=== PATIENT | female | born 1945 | race Caucasian/White ===

== ENCOUNTER 2020-09-04 01:19 | Outpatient (CLI) | payer MEDICARE, SELFPAY ==
[2020-09-04 20:09] LABS: SARS-CoV-2 RNA PCR Negative
== END 2020-09-04 01:20 | disposition home or self-care (01) ==
LOC: ANHCOVIDDT 01:19
PROVIDERS: PCP Internal Medicine; Visit Provider Internal Medicine Gastroenterology
DX: Z01.812 Encounter for preprocedural laboratory examination (principal); Z20.822 Contact with and (suspected) exposure to COVID-19
CPT/HCPCS: C9803; U0003

== ENCOUNTER 2020-09-07 01:33 | Day surgery (SDC) | payer MEDICARE, SELFPAY ==
[2020-08-23 13:31] VITALS: BMI 27.1
[2020-09-07 08:34] VITALS: BP 165/89; PULSE 100; RESP 16; TEMP 36.7; O2SAT 99
[2020-09-07] MEDS: LACTATED RINGERS 1,000 ML 150 ML IV CONT (08:47)
--- NOTE | 2020-09-07 09:22 | WPDANESEPPF ---
Anes - Initial Pre Proc Eval Procedure: Operation Date: 09/07/20 09:45 Proposed Procedures p Esophagogastroduodenoscopy - Adan Tao MD Date/Time: 09/07/20 09:22 Surgeon: Adan Tao MD Pre Op Diagnosis: gastric adenoma Patient Data Age: 75 Gender: F Height: 5 ft Weight: 65.2 kg Last Vital Signs Temp 98.0 F 09/07/20 08:34 Pulse 100 09/07/20 08:34 Resp 16 09/07/20 08:34 BP 165/89 H 09/07/20 08:34 Pulse Ox 99 09/07/20 08:34 Allergies Allergy/AdvReac Type Severity Reaction Status Date / Time No Known Allergies Allergy Unverified 09/07/20 08:33 Home Medications Medication Instructions Recorded Confirmed Type hydrochlorothiazide 25 mg tablet 25 mg PO DAILY tablet 07/22/20 09/07/20 History lactobacillus combination no.9 4 4,000 mmu cells PO DAILY 07/22/20 09/07/20 History billion cell capsule multivit with 1 tablet PO DAILY 07/22/20 09/07/20 History dkmhxfyj-rlop-HI-lutein 8 mg iron-400 mcg-300 mcg tablet amlbokep-cxrw-ziq3-C-chandana-bosw 1 tablet PO DAILY 08/23/20 09/07/20 History [Osteo Bi-Flex Triple Strength] Patient hx anesthesia problems: none Family hx anesthesia problems: none PMFSH Past Medical History Medical History (Updated 07/22/20 @ 11:28 by Adan Tao MD) Arthritis Encounter for screening colonoscopy Gastric adenoma H/O: HTN (hypertension) History of diverticulitis of colon Hypertension Paraesophageal hiatal hernia Social History Social History Smoking packs per day: 1.5 Smoking cigarettes per day: 30.0 Years smoked: 25 Smoking pack-years: 37.50 Smoking status: Former smoker Tobacco type: cigarettes Alcohol intake: current Substance use: never Substance use type: does not use Living arrangements: alone Spiritual care concerns: No Anes - Eval Final PreProcedure Day of Procedure 09/07/20 09:22 Patient weight: normal Heart: regular rate and rhythm Lungs: clear to auscultation Airway: Mallampati scale class II Neurological: alert and oriented Last oral intake: >/= 8 hours ASA classification: III Emergent: no Anesthetic plan: proceed Anesthesia type and monitoring: general GIVS and standard monitoring Informed Consent: The patient's anesthetic plan and its attendant risks and benefits were discussed with the patient/family/POA. Questions were solicited and answers provided to the satisfaction of the patient/family/POA.
--- NOTE | 2020-09-07 09:36 | PM.HPGS ---
History of Present Illness History of Present Illness Consent: Risks, benefits, and alternatives have been discussed and questions answered. Patient agrees to proceed with procedure. Chief complaint: gastric adenoma Narrative: Rehana Cantu is a 75 year old female with gastric adenoma diagnosed in 2019 and hiatal hernia but denies nausea or abdominal pain. Review of Systems Constitutional: Constitutional: Denies headache(s) and Denies weakness Eyes: Eyes: Denies blurry vision ENT: Reports Normal hearing present, Denies headache(s) and Denies neck pain Cardiovascular: Cardiovascular: Denies chest pain and Denies dyspnea Respiratory: Respiratory: Denies dyspnea Gastrointestinal: Gastrointestinal: Reports no additional gastrointestinal complaints Genitourinary: Genitourinary: Denies dysuria Musculoskeletal: Musculoskeletal: Denies neck pain Integumentary/Breasts: Skin/Breast: Denies dry skin Neurologic: Reports Normal hearing present, Denies headache(s) and Denies weakness Psychiatric: Psychiatric: Denies anxiety Endocrine: Endocrine: Denies change in body appearance Hematologic/Lymphatic: Hematologic/Lymphatic: Denies easy bleeding Allergic/Immunologic: Allergic/Immunologic: Denies urticaria PMF Past Medical History Medical History (Updated 07/22/20 @ 11:28 by Adan Tao MD) Arthritis Encounter for screening colonoscopy Gastric adenoma H/O: HTN (hypertension) History of diverticulitis of colon Hypertension Paraesophageal hiatal hernia Social History Social History Smoking packs per day: 1.5 Smoking cigarettes per day: 30.0 Years smoked: 25 Smoking pack-years: 37.50 Smoking status: Former smoker Tobacco type: cigarettes Alcohol intake: current Substance use: never Substance use type: does not use Living arrangements: alone Spiritual care concerns: No Meds Home Medications and Allergies Home Medications Medication Instructions Recorded Confirmed Type hydrochlorothiazide 25 mg tablet 25 mg PO DAILY tablet 07/22/20 09/07/20 History lactobacillus combination no.9 4 4,000 mmu cells PO DAILY 07/22/20 09/07/20 History billion cell capsule multivit with 1 tablet PO DAILY 07/22/20 09/07/20 History vqiqdbol-cxqw-QH-lutein 8 mg iron-400 mcg-300 mcg tablet qhepsuiv-tmlp-llf4-C-chandana-bosw 1 tablet PO DAILY 08/23/20 09/07/20 History [Osteo Bi-Flex Triple Strength] Allergies Allergy/AdvReac Type Severity Reaction Status Date / Time No Known Allergies Allergy Unverified 09/07/20 08:33 Vital Signs Vital Signs - 24 hr 09/07/20 08:34 Temperature 98.0 F Pulse Rate 100 Respiratory Rate 16 Blood Pressure 165/89 H Pulse Oximetry 99 Exam Const: General: comfortable and no acute distress HENMT: General nose exam: Normal nares present Eyes: General: appearance normal, both eyes and all related structures Neck: Neck: no JVD Resp: Auscultation: clear to auscultation bilaterally Cardio: Rate: regular rate Rhythm: regular rhythm GI: Inspection: non-distended GI Palp: Yes Soft to palpation Skin: General skin exam: normal color Neuro: General: gait normal Speech: normal speech Extrem: General: normal to inspection Psych: Mental Status: mental status grossly normal Assessment and Plan Assessment and plan (1) Gastric adenoma: Code(s): D13.1 - Benign neoplasm of stomach Status: Acute Assessment and Plan: egd with bx (2) Paraesophageal hiatal hernia: Code(s): K44.9 - Diaphragmatic hernia without obstruction or gangrene Status: Acute Assessment and Plan: she may be interested to talk to a surgeon later on but now does not have symptoms.
[2020-09-07] MEDS: BENZOCAINE (*SP) 60 ML SPRAY CAN (HURRICAINE) 1 SPRAY MUCOUS MEM (09:50)
[2020-09-07 10:06] VITALS: BP 106/72; PULSE 92; RESP 22; O2SAT 96
[2020-09-07 10:16] VITALS: BP 111/77; PULSE 90; RESP 20; O2SAT 97
[2020-09-07 10:26] VITALS: BP 138/86; PULSE 84; RESP 18; O2SAT 98
[2020-09-07 10:36] VITALS: BP 149/99; PULSE 82; RESP 18; O2SAT 96
== END 2020-09-07 10:49 | disposition home or self-care (01) ==
PROVIDERS: PCP Internal Medicine; Visit Provider Internal Medicine Gastroenterology
PROC: 0DJ08ZZ Inspection of Upper Intestinal Tract, Via Natural or Artificial Opening Endoscopic (ICD-10-PCS; CPT 43235; principal; 2020-09-07 09:45)
DX: K29.50 Unspecified chronic gastritis without bleeding (principal); I10 Essential (primary) hypertension; M19.90 Unspecified osteoarthritis, unspecified site; K44.9 Diaphragmatic hernia without obstruction or gangrene; Z87.891 Personal history of nicotine dependence; K57.32 Diverticulitis of large intestine without perforation or abscess without bleeding
CPT/HCPCS: 43239; 88305; J2704; J7120

== ENCOUNTER 2024-10-08 12:45 | Outpatient (CLI) | payer MEDICARE, SELFPAY ==
--- NOTE | ~2024-10-08 | DEXA_ITS ---
Bone Density Report Name: JULIANNA MARTIN Age: 79 Sex: Female Ethnicity: White Date of : 1945 Indication: postmenopausal; screening for osteoporosis; Referring Provider: Keven Patel Study: Bone densitometry was performed. Exam Date: October 08, 2024 Accession number: [id number] Bone Density: Region BMD T-score Z-score Classification AP Spine(L1-L4) 0.964 -0.8 1.9 Normal Femoral Neck (Left) 0.611 -2.1 0.1 Osteopenia Total Hip (Left) 0.640 -2.5 -0.4 Osteoporosis Femoral Neck (Right) 0.589 -2.3 -0.1 Osteopenia Total Hip (Right) 0.685 -2.1 -0.1 Osteopenia Femoral Neck Mean 0.600 -2.2 0.0 Osteopenia Total Hip Mean 0.662 -2.3 -0.3 Osteopenia World Health Organization criteria for BMD impression classify patients as: Normal (T-score at or above -1.0), Osteopenia (T-score between -1.0 and -2.5), or Osteoporosis (T-score at or below -2.5). Clinical Information Provided by Patient: Patient maximum height was 60 Menopause Age: 50 No regular weight bearing exercise Drinks caffeinated beverages Onset of menses at age 13 Number of children 3 Impression: The patient has osteoporosis, based on the Left Total Hip T-score. Discussion: INCREASED RISK OF FRACTURE. BONE DENSITY IS UNDESIRABLY LOW AT ONE OR MORE SKELETAL SITES, CONSISTENT WITH POSTMENOPAUSAL OSTEOPOROSIS. This patient's lowest T-score meets the World Health Organization's (WHO) criteria for osteoporosis at one or more sites (T-score -2.5 or below). In untreated patients, the risk of osteoporotic fracture increases approximately two-fold for each 1.0 SD decrease in T-score. Low bone density is not the only risk factor for fracture; also consider factors such as patient's age, frailty or poor health, risk of falling, risk of injury, previous osteoporotic fracture, family history of osteoporosis, cigarette smoking, low body weight, etc. Not everyone with low bone mineral density has osteoporosis; osteomalacia and other metabolic bone disorders should also be considered. Patients who have osteoporosis should be evaluated for specific diseases and conditions (secondary causes) that may cause or contribute to bone loss. The [place] [employer] (AACE) and National Osteoporosis Foundation (NOF) recommend pharmacologic intervention for all postmenopausal women whose T-score is in this range. The patient should follow a healthful lifestyle (good nutrition with adequate calcium and vitamin D, and appropriate weight-bearing exercise). Follow-Up: Consider a repeat BMD and Vertebral Fracture Assessment (VFA) exam in 2 years or sooner if medically necessary, to reassess this patient's status. Reported by: ROSE on 10/08/2024 1:08:00 PM. Reviewed, dictated and finalized at location A.
== END 2024-10-08 12:46 | disposition home or self-care (01) ==
PROVIDERS: PCP Internal Medicine; Visit Provider Internal Medicine
DX: Z78.0 Asymptomatic menopausal state (principal); M81.0 Age-related osteoporosis without current pathological fracture; M85.89 Other specified disorders of bone density and structure, multiple sites
CPT/HCPCS: 77080